=== PATIENT | female | born 1990 | race Caucasian/White ===

== ENCOUNTER 2019-05-25 15:18 | Emergency (ER) | payer BC ==
[~2019-05-25] VITALS: Ht 154.9 cm; Wt 65.6 kg
[~2019-05-25 15:18] MED LIST: TRINESSA1 EACH PO
--- OUTSIDE RECORDS SUMMARY | 2019-05-25 15:23 | XMS REPORT | Clinical Summary ---
Author Author [facility] Organization [facility] Address Unknown Phone Unavailable Care Team Providers Care Chemistry Quality Control Technician Name Role Phone Asked, No Pcp PCP Unavailable Allergies No Known Allergies Medications End Date Status Medication Sig Dispensed Refills Start Date Active norgestimate-ethinyl Take 1 tablet 84 tablet 4 estradiol (ORTHO by mouth 9 TRI-CYCLEN,TRINESSA) daily. 0.18/0.215/0.25 mg-35 mcg (28) per tabletIndications: Encounter for surveillance of contraceptive pills 03/12/2019 Discontinued norgestimate-ethinyl Take 1 tablet 84 tablet 3 estradiol (ORTHO by mouth 8 TRI-CYCLEN,TRINESSA) daily. 0.18/0.215/0.25 mg-35 mcg (28) per tablet 04/21/2019 Discontinued norgestimate-ethinyl TAKE 1 TABLET 84 tablet 0 estradiol (ORTHO DAILY 9 TRI-CYCLEN,TRINESSA) 0.18/0.215/0.25 mg-35 mcg (28) per tablet Active Problems No known active problems Encounters Care Team Description Date Type Specialty Blank Le MD Pap smear for cervical cancer screening (Primary Dx); Encounter for surveillance of contraceptive pills; Well woman exam with routine gynecological exam 04/21/2019 Office Visit Obstetrics and Gynecology Blank Le MD 03/17/2019 Telephone Obstetrics and Gynecology Negin Pozo MD 03/12/2019 Refill Obstetrics and Gynecology after 05/24/2018 Family History Medical History Relation Name Comments Diabetes Maternal Grandmother Diabetes Paternal Grandmother Relation Name Status Comments Maternal Grandmother Paternal Grandmother Social History Date Tobacco Use Types Packs/Day Years Used Never Smoker Smokeless Tobacco: Never Used Tobacco Cessation: Counseling Given: No Alcohol Use Drinks/Week oz/Week Comments No Sex Assigned at Date Recorded Not on file Industry Job Start Date Occupation Not on file Not on file Not on file Travel End Travel History Travel Start No recent travel history available. Last Filed Vital Signs Time Taken Vital Sign Reading 04/21/2019 8:52 AM CDT Blood Pressure 130/89 04/21/2019 8:52 AM CDT Pulse 68 - Temperature - - Respiratory Rate - - Oxygen Saturation - - Inhaled Oxygen - Concentration 04/21/2019 8:52 AM CDT Weight 63 kg (138 lb 12.8 oz) 04/21/2019 8:52 AM CDT Height 154.9 cm (5' 1") 04/21/2019 8:52 AM CDT Body Mass Index 26.23 Plan of Treatment Health Maintenance Due Date Last Done Comments INFLUENZA VACCINE 06/05/2019 Procedures Comments Procedure Name Priority Date/Time Associated Diagnosis THINPREP TIS PAP RFX HPV Routine 04/21/2019 Pap smear for cervical 9:18 AM CDT cancer screening after 05/24/2018 Results * THINPREP TIS PAP RFX HPV (04/21/2019 9:18 AM CDT) Clinical None given [facility] [place] Date of last NONE GIVEN [facility] menstrual DIAGNOSTICS period [facility]ANNA[facility] Prev. pap: NONE GIVEN [facility] [place] Prev. bx: NONE GIVEN [facility] DI[facility]NOSTICS [place] Source None given [facility] [place] Statement of Comment: [facility] adequacy Satisfactory for evaluation. DIAGNOSTICS Endocervical/transformation [place] zone component present. Age and/or menstrual status not provided Interpretation/ Comment: Negative for [facility] result: intraepithelial lesion or DIAGNOSTICS malignancy. [place] Comment Comment: [facility] Tip of collection device in DIAGNOSTICS vial [place] This Pap test has been evaluated with computer assisted technology. [facility] Comment: [facility] t JRR, CT (ASCP) DIAGNOSTICS CT screening location: [facility] [address], [facility] [address] Comment Comment: [facility] EXPLANATORY NOTE: DIAGNOSTICS The Pap is a screening test [place] for cervical cancer. It is not a diagnostic test and is subject to false negative and false positive results. It is most reliable when a satisfactory sample, regularly obtained, is submitted with relevant clinical findings and history, and when the Pap result is evaluated along with historic and current clinical information. Specimen Cervical Resulting Agency Comment Performing Organization Information: Site ID: [id number] Name: [facility] Address: [address] [place] [id number] Director: Tabatha Maradiaga Performing Organization Address City/State/Zipcode Phone Number [facility] [place] [address] [place] [address] after 05/24/2018 Insurance Type Payer Benefit Subscriber ID Effective Phone Address Plan / Dates Group PPO BCBS BCBS xxxxxxxxxxxx 2014 CHOICE -Present PPO/KARMEN MELCHOR PPO Advance Directives Patient has advance care planning documents on file. For more information, carlos alberto davis contact: Haider Yu [address] [place] [address]
[2019-05-25] MEDS ORDERED: ONDANSETRON HCL 4 MG ORAL DISINTEGRATING TAB ONE (15:37)
[2019-05-25] MEDS ORDERED: ONDANSETRON HCL 4 MG ORAL DISINTEGRATING TAB PO ONE (16:00)
--- NOTE | 2019-05-25 16:31 | Diagnostic Imaging Report ---
EXAMINATION: CXR 2 VIEW - HOPD INDICATION: ^[id number] ^1600 COMPARISON: None FINDINGS: PA and lateral views TUBES and LINES: None. LUNGS: Lungs are well inflated. Lungs are clear. There is no evidence of pneumonia or pulmonary edema. PLEURA: No pleural effusion or pneumothorax. HEART AND MEDIASTINUM: The cardiomediastinal silhouette is unremarkable. BONES AND SOFT TISSUES: No acute osseous lesion. Soft tissues are unremarkable. UPPER ABDOMEN: No free air under the diaphragm. IMPRESSION: No acute thoracic abnormality. Signed by: Dr. Briana Choi M.D. on 05/25/2019 4:28 PM
--- NOTE | 2019-05-25 16:32 | Diagnostic Imaging Report ---
NECK X-RAY - 2 VIEWS HISTORY: ^[id number] ^1600 COMPARISON: None available. FINDINGS: Bones: No acute displaced fracture. Osseous alignment is within normal limits. Joints: The joint spaces are well-maintained. Soft tissues: The soft tissues appear unremarkable. IMPRESSION: No acute radiographic abnormality. Specifically, no radiopaque foreign bodies overlying the neck. Signed by: Dr. Briana Choi M.D. on 05/25/2019 4:29 PM
[2019-05-25 16:46] VITALS: BP 146/98
== END 2019-05-25 16:52 | disposition home or self-care (01) ==
LOC: FSED 15:18
DX: R06.00 Dyspnea, unspecified (principal); I10 Essential (primary) hypertension; K21.9 Gastro-esophageal reflux disease without esophagitis
CPT/HCPCS: 71046; 72040; 80048; 81025; 85025; 85379; 93005; 99284; Q0162